=== PATIENT | male | born 1990 | race Two or more races ===

== ENCOUNTER 2017-09-08 06:44 | Day surgery (SDC) | payer OTHER ==
[2017-09-08 07:15] LABS: HEMOGLOBIN 13.7 g/dL (13.5-17.0); MEAN CORPUSCULAR HEMOGLOBIN 27.6 pg (27.0-33.4); MEAN CORPUSCULAR HGB CONC 33.5 g/dL (32.0-36.0); MEAN CORPUSCULAR VOLUME 83 fl (80-97); PLATELET COUNT 218 10^3/uL (150-450); RED BLOOD COUNT 4.96 10^6/uL (4.35-5.55); WHITE BLOOD COUNT 5.4 10^3/uL (4.0-10.5)
[2017-09-08 07:19] LABS: INTERNATIONAL RATION (INR) 1.02; PROTHROMBIN TIME 13.9 SEC (11.4-15.4)
[2017-09-08 07:20] LABS: PARTIAL THROMBOPLASTIN TIME 32.6 SEC (23.5-35.8)
[2017-09-08 07:29] LABS: BLOOD UREA NITROGEN 40 mg/dL (7-20)
[2017-09-08] MEDS ORDERED: MIDAZOLAM 2 MG/2 ML INJ ONE (08:27)
[2017-09-08] MEDS ORDERED: LIDOCAINE 1% INJ-PF (10 MG/ML) 30 ML SDV ONE (08:28)
[2017-09-08] MEDS ORDERED: FENTANYL CITRATE INJ/PF 100 MCG/2 ML AMPUL ONE (08:28)
--- NOTE | 2017-09-08 09:53 | RADIOLOGY REPORT (SQ) ---
EXAM DESCRIPTION: CT BIOPSY RENAL; CT NEEDLE PLACEMENT COMPLETED DATE/TIME: 09/08/2017 9:05 am; 09/08/2017 9:04 am REASON FOR STUDY: ACUTE RENAL FAILURE; ACUTE RENAL FAILURE, RENAL BX N17.9 ACUTE KIDNEY FAILURE, UN SPECIFIED R80.9 PROTEINURIA, UNSPECIFIED COMPARISON: Renal ultrasound and renal artery Doppler 01/12/2014 RADIATION DOSE: CT Rad equipment meets quality standard of care and radiation dose reduction techniq ues were employed. CTDIvol: 4.0 - 9.9 mGy. DLP: 236 mGy-cm. mGy. LIMITATIONS: None. PROCEDURE: Procedure was discussed with the patient and the patient agreed to the procedure. Preliminary CT scanning to localize the biopsy site was performed. A site was marked on the right lo wer pole kidney and time out was performed. Procedure was performed using CT fluoroscopy. Total expo sure time: 5.3 S. V Belt Skiver series of images and intra proceduralCT fluoroscopic images were obtained and saved to PACS. IV conscious sedation was administered and physician direction by the registered nurse using 2 millig meredith of Versed and 75 micrograms of fentanyl. Physiologic monitoring was provided before, during, and after sedation. The total sedation time was 43 minutes. Documentation face to face time, the performing proceduralist, spent monitoring the patient: 10minute s. After sterile skin prep with ChloraPrep, local lidocaine for skin and deep tissue anesthesia, the rig ht lower pole kidney was localized. A coaxial 18 gauge needle was used to obtain 5 cores of tissue fr om the right lower pole kidney. The biopsy tract was embolized with Gelfoam. All CT scanners at this facility use dose modulation, iterative reconstruction, and/or weight based d osing when appropriate to reduce radiation dose to as low as reasonably achievable (ALARA). [facility]: Dose Right [facility]: CareDose [facility]: Dose Right [facility]: Teradose 4D [facility]: [employer] FINDINGS: There were no immediate complications. Specimen was carried to cytology on sterile saline gauze and submitted to the pbx operator for processing. Pathology is pending at the time of dict ation. IMPRESSION: CT GUIDED RIGHT KIDNEY CORTICAL BIOPSY. IV conscious sedation COMMENT: Patient medication list reviewed:Yes- Quality ID# [id number]:Eligible professional attests to docu menting in the medical record they obtained, updated, or reviewed the patient's current medications.. TECHNICAL DOCUMENTATION: JOB ID: [id number] Quality ID #[id number]: Final reports for procedures using fluoroscopy that document radiation exposure angélica molina, or exposure time and number of fluorographic images (if radiation exposure indices are not avail able) Quality ID # [id number]: Final reports with documentation of one or more dose reduction techniques (e.g., Au tomated exposure control, adjustment of the mA and/or kV according to patient size, use of iterative reconstruction technique) 2010 [email or web address]- All Rights Reserved Reading location - IP/workstation name: [facility] [id number]
--- NOTE | 2017-09-08 09:53 | RADIOLOGY REPORT (SQ) ---
EXAM DESCRIPTION: CT BIOPSY RENAL; CT NEEDLE PLACEMENT COMPLETED DATE/TIME: 09/08/2017 9:05 am; 09/08/2017 9:04 am REASON FOR STUDY: ACUTE RENAL FAILURE; ACUTE RENAL FAILURE, RENAL BX N17.9 ACUTE KIDNEY FAILURE, UN SPECIFIED R80.9 PROTEINURIA, UNSPECIFIED COMPARISON: Renal ultrasound and renal artery Doppler 01/12/2014 RADIATION DOSE: CT Rad equipment meets quality standard of care and radiation dose reduction techniq ues were employed. CTDIvol: 4.0 - 9.9 mGy. DLP: 236 mGy-cm. mGy. LIMITATIONS: None. PROCEDURE: Procedure was discussed with the patient and the patient agreed to the procedure. Preliminary CT scanning to localize the biopsy site was performed. A site was marked on the right lo wer pole kidney and time out was performed. Procedure was performed using CT fluoroscopy. Total expo sure time: 5.3 S. Cigarette Making Machine Hopper Feeder series of images and intra proceduralCT fluoroscopic images were obtained and saved to PACS. IV conscious sedation was administered and physician direction by the registered nurse using 2 millig meredith of Versed and 75 micrograms of fentanyl. Physiologic monitoring was provided before, during, and after sedation. The total sedation time was 43 minutes. Documentation face to face time, the performing proceduralist, spent monitoring the patient: 10minute s. After sterile skin prep with ChloraPrep, local lidocaine for skin and deep tissue anesthesia, the rig ht lower pole kidney was localized. A coaxial 18 gauge needle was used to obtain 5 cores of tissue fr om the right lower pole kidney. The biopsy tract was embolized with Gelfoam. All CT scanners at this facility use dose modulation, iterative reconstruction, and/or weight based d osing when appropriate to reduce radiation dose to as low as reasonably achievable (ALARA). [facility]: Dose Right [facility]: CareDose [facility]: Dose Right [facility]: Teradose 4D [facility]: [employer] FINDINGS: There were no immediate complications. Specimen was carried to cytology on sterile saline gauze and submitted to the tow car driver for processing. Pathology is pending at the time of dict ation. IMPRESSION: CT GUIDED RIGHT KIDNEY CORTICAL BIOPSY. IV conscious sedation COMMENT: Patient medication list reviewed:Yes- Quality ID# [id number]:Eligible professional attests to docu menting in the medical record they obtained, updated, or reviewed the patient's current medications.. TECHNICAL DOCUMENTATION: JOB ID: [id number] Quality ID #[id number]: Final reports for procedures using fluoroscopy that document radiation exposure angélica molina, or exposure time and number of fluorographic images (if radiation exposure indices are not avail able) Quality ID # [id number]: Final reports with documentation of one or more dose reduction techniques (e.g., Au tomated exposure control, adjustment of the mA and/or kV according to patient size, use of iterative reconstruction technique) 2010 [employer]- All Rights Reserved Reading location - IP/workstation name: [facility]-RR
[2017-09-08 11:20] VITALS: BP 114/53
== END 2017-09-08 11:29 | disposition home or self-care (01) ==
LOC: RAD 06:44
PROVIDERS: ATTEND Internal Medicine Nephrology
DX: N26.9 Renal sclerosis, unspecified (principal); I12.9 Hypertensive chronic kidney disease with stage 1 through stage 4 chronic kidney disease, or unspecified chronic kidney disease; N18.9 Chronic kidney disease, unspecified; R80.9 Proteinuria, unspecified
CPT/HCPCS: 36415; 84520; 82565; 85027; 85610; 85730; 88346; 88348 ×2; 88313 ×2; 77012; 50200; J2250; J3010; J3490